=== PATIENT | male | born 1990 | race Hispanic/Latino ===

== ENCOUNTER 2019-02-10 12:12 | Inpatient (IN) | payer SELFPAY ==
[2019-02-10] MEDS ORDERED: NA CHLORIDE 0.9% 1,000 ML ONE ×3 (12:15→14:26)
[2019-02-10] MEDS ORDERED: DIAZEPAM 10 MG/2 ML INJ SYRINGE ONE (12:15)
[2019-02-10] MEDS ORDERED: Mastisol Adhesive Liq ONE ×3 (12:21→13:07)
[2019-02-10] MEDS ORDERED: KETAMINE HCL 500 MG/5 ML VIAL ONE (12:30)
[2019-02-10] MEDS ORDERED: PROPOFOL 1,000 MG/100 ML VIAL IV ONE (12:49)
[2019-02-10] MEDS ORDERED: RSI MEDICATION KIT IV ONE (12:49)
[2019-02-10] MEDS ORDERED: VECURONIUM 10 MG/VIAL IV ONE (12:49)
[2019-02-10] MEDS ORDERED: WATER FOR INJ,STERILE 20 ML ONE (12:50)
[2019-02-10 13:06] LABS: Absolute Lymphocytes (CBC) 1.6 K/uL (0.7-4.9); Basophils % 0.4 % (0-1.3); Hematocrit 45.1 % (39.6-49.0); Lymphocytes % 13.6 % (15.3-44.8); MPV 8.6 fL (7.6-11.3); RBC Red Blood Cell Count 5.03 M/uL (4.33-5.43)
[2019-02-10 13:10] LABS: Protime INR 0.97
[2019-02-10 13:39] LABS: ALT/SGPT 22 U/L (12-78); AST/SGOT 16 U/L (15-37); Albumin 4.2 g/dL (3.4-5.0); Alkaline Phosphatase 64 U/L (45-117); BUN Blood Urea Nitrogen 18 mg/dL (7-18); Bicarbonate 24 mmol/L (21-32); Bilirubin Direct < 0.1 mg/dL (0-0.2); Bilirubin Total 0.2 mg/dL (0.2-1.0); Creatine Phosphokinase 188 U/L (39-308); Glucose Level 90 mg/dL (74-106); Potassium 4.4 mmol/L (3.5-5.1); Protein, Total 7.5 g/dL (6.4-8.2); Sodium Level 152 mmol/L (136-145); Troponin I 0.03 ng/mL (0.0-0.045)
--- NOTE | 2019-02-10 13:50 | RAD REPORT ---
EXAM DESCRIPTION: CT - [id number] - 02/10/2019 1:41 pm CLINICAL HISTORY: Trauma, head and neck injury. AMS COMPARISON: No comparisons TECHNIQUE: Axial 5 mm thick images of the head were obtained. Axial 2 mm thick images of the cervical spine were obtained with sagittal and coronal reconstruction images generated and reviewed. All CT scans are performed using dose optimization technique as appropriate and may include automated exposure control or mA/KV adjustment according to patient size. FINDINGS: CT HEAD WITHOUT CONTRAST: No acute hemorrhage, hydrocephalus or extra-axial collection is identified.No areas of brain edema or midline shift. The paranasal sinuses and mastoids are clear.The calvarium is intact. CT CERVICAL SPINE WITHOUT CONTRAST: No fracture or subluxation.No prevertebral soft tissues swelling is identified. Enteric tube and ET tube are noted. IMPRESSION: No acute intracranial or cervical spine findings.
[2019-02-10 13:51] LABS: Barbiturates NEGATIVE (NEGATIVE); Benzodiazepines NEGATIVE (NEGATIVE); Cocaine NEGATIVE (NEGATIVE); METHAMPHETAM POSITIVE (NEGATIVE); Methadone NEGATIVE (NEGATIVE); Opiates NEGATIVE (NEGATIVE); Phencyclidine NEGATIVE (NEGATIVE); THC Cannibis POSITIVE (NEGATIVE)
[2019-02-10 14:12] LABS: Urine Blood 3+ (NEG); Urine Glucose NEGATIVE (NEG); Urine Protein 3+ (NEG); Urine Specific Gravity >1.030 (1.005-1.030)
--- NOTE | 2019-02-10 14:25 | RAD REPORT ---
EXAM DESCRIPTION: RAD - Chest Single View - 02/10/2019 2:19 pm CLINICAL HISTORY: Post ETT and NGT placement Chest pain. COMPARISON: CHEST SINGLE VIEW dated 03/05/2015 FINDINGS: Portable technique limits examination quality. The lungs are grossly clear. The heart is normal in size. No displaced fractures. Tip of the ET tube is above the amparo. Enteric tube coils in the stomach.
[2019-02-10] MEDS ORDERED: NACHLORIDE 0.45% 1,000 ML IV ONE (14:39)
--- NOTE | 2019-02-10 14:40 | EDPHYS ---
Physician Documentation [facility] Name: Carlos Manuel Nagel Age: 28 yrs Sex: Male : 1990 Arrival Date: 02/10/2019 Time: 12:26 Bed 4 Private MD: ED Physician Mauro Loo HPI: 02/10 12:45 This 28 yrs old Male presents to ER via EMS with complaints of Altered Mental cp Status, Drug Abuse. 12:45 The patient presents with agitation, confusion. Onset: The symptoms/episode cp began/occurred at an unknown time. Associated signs and symptoms: Pertinent positives: fever. Current symptoms: In the emergency department the patient's symptoms are unchanged from the initial presentation, despite EMS interventions. Unable to obtain HPI due to altered mental status. 12:45 EMS report patient was found in car unresponsive. cp Historical: - Allergies: 14:08 No Known Drug Allergies; hb - Immunization history:: Adult Immunizations unknown. - Social history:: Smoking status: unknown. - Ebola Screening: : Unable to complete screening because patient is unresponsive, patient is intubated, patient does not understand, patient is disoriented, . ROS: 12:50 Neuro: Positive for altered mental status. cp 12:50 Constitutional: Positive for fever. cp 12:50 Unable to obtain ROS due to altered mental status. Exam: 13:00 Constitutional: The patient appears alert, awake, non-toxic, well developed, well cp nourished, diaphoretic. 13:00 Head/Face: Normocephalic, atraumatic. cp 13:00 Eyes: Periorbital structures: appear normal, Pupils: dilated, bilaterally, Extraocular movements: intact throughout, Conjunctiva: normal, no exudate, no injection, Lids and lashes: appear normal, bilaterally. 13:00 ENT: External ear(s): are unremarkable, Ear canal(s): are normal, clear, TM's: dullness, bilaterally, Nose: is normal, Mouth: Lips: moist, Oral mucosa: moist, Posterior pharynx: Airway: no evidence of obstruction, patent. 13:00 Neck: ROM/movement: pain, is not appreciated, limited range of motion, is not appreciated, Meningeal signs: are not present, nuchal rigidity, is not appreciated. 13:00 Chest/axilla: Inspection: normal, Palpation: crepitus, is not appreciated. 13:00 Cardiovascular: Rate: tachycardic, Rhythm: regular, Edema: is not appreciated, JVD: is not appreciated. 13:00 Respiratory: the patient does not display signs of respiratory distress, Respirations: labored breathing, is not present, intercostal retractions, are absent, shallow respirations, are not present, Breath sounds: are clear throughout, no decreased breath sounds, no stridor, no wheezing. 13:00 Abdomen/GI: Inspection: abdomen appears normal, Palpation: abdomen is soft and non-tender, in all quadrants, rebound tenderness, is not appreciated. 13:00 Skin: no rash present. 13:00 Neuro: Orientation: Not oriented to person, place, situation, Mentation: unable to test, altered mental status, combative, Motor: moves all fours, strength is normal. 13:10 ECG was reviewed by the Attending Physician. cp Vital Signs: 12:20 BP 101 / 67; Pulse 180; Resp 34; Temp 102.9(A); Pulse Ox 89% on R/A; Weight 140 kg; hb 12:30 Pulse 177; Resp 30; Pulse Ox 99% ; sv 12:45 Pulse 174; Resp 30; Pulse Ox 100% on R/A; sv 13:18 BP 124 / 67; Pulse 137; Resp 18; Pulse Ox 98% on ETT vent; sv 13:30 BP 126 / 65; Pulse 129; Resp 20; Pulse Ox 100% on ETT vent; sv 13:45 BP 148 / 79; Pulse 130; Resp 18; Pulse Ox 99% on ETT vent; sv 14:00 BP 136 / 89; Pulse 117; Resp 16; Pulse Ox 99% on ETT vent; sv 14:15 BP 128 / 98; Pulse 121; Resp 16; Temp 99.5(C); Pulse Ox 98% on ETT vent; sv 14:27 BP 134 / 76; Pulse 122; Resp 16; Pulse Ox 100% on 40% FiO2 ETT vent; sv 14:45 BP 127 / 83; Pulse 117; Resp 17; Temp 99; Pulse Ox 100% on 40% FiO2 ETT vent; sv 15:00 BP 124 / 77; Pulse 117; Resp 14; Temp 98.8(C); Pulse Ox 100% on 40% FiO2 ETT vent; sv 16:15 BP 131 / 84; Pulse 111 MON; Resp 16; Temp 98.2(C); Pulse Ox 100% on 40% FiO2 ETT vent; sv 16:30 BP 135 / 84; Pulse 110; Resp 18; Pulse Ox 99% on 40% FiO2 ETT vent; sv 16:45 BP 126 / 83; Pulse 107; Resp 16; Pulse Ox 100% on 40% FiO2 ETT vent; sv 17:00 BP 124 / 88; Pulse 111; Resp 16; Pulse Ox 100% on 40% FiO2 ETT vent; sv 17:15 BP 125 / 80; Pulse 110; Resp 16; Temp 98.8(C); Pulse Ox 100% on 40% FiO2 ETT vent; sv 16:15 Sinus tachycardia sv Ventilator: 16:01 Fi02: 40%; Rate: 14min; T.V.: 500ml; Peep: 3cm; Mode: CMV; sv Procedures: 13:05 Moderate sedation: Pre-procedure assessment: the patient has been NPO an unknown amount cp of time prior to arrival, Airway assessment: able to maintain airway, can open mouth without difficulty, Monitoring during procedure: scale operator, continuous pulse oximetry, nurse at bedside at all times, Medications employed: Ketamine, 150 mg(s), Post-procedure assessment: the patient is moderately sedated, Respiratory status: even and unlabored. 13:20 Intubation: Ventilated with 100% NRB prior to procedure. O2 saturation prior to cp procedure was 100 %. Intubated orally using # 4 Ritu blade with 7.5 mm ETT. was successful on first attempt. Tube secured with ETT [place] at left side of mouth measured 23 cm at lip. Placement verified by CXR, CO2 detector with (+) color change, auscultating bilateral breath sounds, O2 saturation after procedure was 100 %. MDM: 12:46 Patient medically screened. cp 14:20 Data reviewed: vital signs, nurses notes, lab test result(s), EKG, radiologic studies, cp CT scan, plain films. 14:20 Test interpretation: by ED physician or midlevel provider: ECG, plain radiologic cp studies. 02/10 12:28 Order name: glucometer results - FOR PT WITH NO ID; Complete Time: 13:43 aa5 02/10 12:37 Order name: Acetaminophen cp 02/10 12:37 Order name: Basic Metabolic Panel cp 02/10 12:37 Order name: CBC with Diff cp 02/10 12:37 Order name: ETOH Level cp 02/10 12:37 Order name: Hepatic Function; Complete Time: 13:43 cp 02/10 12:37 Order name: PT-INR; Complete Time: 13:43 cp 02/10 12:37 Order name: Ptt, Activated; Complete Time: 13:43 cp 02/10 12:37 Order name: Salicylate; Complete Time: 13:43 cp 02/10 12:37 Order name: Urine Drug Screen; Complete Time: 14:07 cp 02/10 14:17 Interpretation: Normal except: METHAMPHETAMINE POSITIVE; THC POSITIVE. cp 02/10 12:37 Order name: Blood Culture Adult (2) cp 02/10 12:37 Order name: Lactate; Complete Time: 13:43 cp 02/10 13:43 Interpretation: Abnormal: LAC 6.4. cp 02/10 12:37 Order name: Procalcitonin; Complete Time: 14:07 cp 02/10 12:37 Order name: Troponin I; Complete Time: 13:43 cp 02/10 12:37 Order name: CT Head C Spine; Complete Time: 14:07 cp 02/10 14:07 Interpretation: Reviewed report. cp 02/10 12:37 Order name: CK; Complete Time: 13:43 cp 02/10 12:37 Order name: Ckmb; Complete Time: 13:43 cp 02/10 12:38 Order name: Acetaminophen Level; Complete Time: 13:43 EDMS 02/10 12:38 Order name: Basic Metabolic Panel; Complete Time: 13:43 EDMS 02/10 13:43 Interpretation: Normal except: NA 152; CL 118; CRE 1.63; GFR 51. cp 02/10 12:38 Order name: CBC with Automated Diff; Complete Time: 13:43 EDMS 02/10 13:44 Interpretation: Normal except: WBC 11.7; MCV 89.8; SHANNEN% 81.0; LYM% 13.6; NEUT A 9.5. cp 02/10 12:38 Order name: Alcohol Serum/Plasma; Complete Time: 13:43 EDMS 02/10 13:44 Interpretation: ETOH 4; Reviewed. cp 02/10 13:31 Order name: Urine Dipstick--Ancillary (enter results); Complete Time: 14:17 bd 02/10 14:17 Interpretation: Normal except: USPGR >1.030; UBLD 3+; UPROT 3+. cp 02/10 14:07 Order name: Chest Single View XRAY; Complete Time: 14:55 hb 02/10 12:37 Order name: EKG; Complete Time: 12:39 cp 02/10 12:37 Order name: EKG - Nurse/Tech; Complete Time: 14:08 cp 02/10 12:37 Order name: IV Saline Lock; Complete Time: 14:08 cp 02/10 12:37 Order name: Labs collected and sent; Complete Time: 14:08 cp 02/10 12:37 Order name: Urine Dipstick-Ancillary (obtain specimen); Complete Time: 14:08 cp 02/10 12:37 Order name: Ice pack; Complete Time: 15:29 cp 02/10 12:37 Order name: Seizure Precautions; Complete Time: 15:29 cp 02/10 12:37 Order name: Restrain Patient; Complete Time: 15:29 cp 02/10 12:37 Order name: Conde; Complete Time: 14:07 cp EC:10 Rate is 146 beats/min. Rhythm is regular. HI interval is normal. QRS interval is cp normal. QT interval is normal. Interpreted by me. Reviewed by me. Administered Medications: Discontinued: NS 0.9% 1000 ml IV at 125 ml/hr continuous 12:28 Drug: Valium 5 mg Route: IVP; Site: right antecubital; hb 12:50 Follow up: Response: No adverse reaction; No change in condition sv 12:31 Drug: NS 0.9% 1000 ml Route: IV; Rate: 1 bolus; Site: right antecubital; hb 13:00 Follow up: Response: No adverse reaction; IV Status: Completed infusion; IV Intake: sv 1000ml 12:33 Drug: NS 0.9% 1000 ml Route: IV; Rate: 1 bolus; Site: right forearm; sv 13:00 Follow up: Response: No adverse reaction; IV Status: Completed infusion; IV Intake: sv 1000ml 12:33 Drug: Ketamine 150 mg Route: IV; Rate: calculated rate; Site: right forearm; sv 15:32 Follow up: Response: No adverse reaction; No change in condition; IV Status: Completed sv infusion; IV Intake: 1.5ml 12:36 Drug: Ketamine 75 mg Route: IV; Rate: calculated rate; Site: right forearm; sv 12:39 Follow up: Response: No adverse reaction; No change in condition; IV Status: Completed sv infusion; IV Intake: 0.75ml 12:39 Drug: Ketamine 75 mg Route: IV; Rate: calculated rate; Site: right forearm; sv 12:45 Follow up: Response: No adverse reaction; IV Status: Completed infusion; IV Intake: sv 0.75ml 12:59 Drug: VecuroNIUM 10 mg Route: IVP; Site: right forearm; sv 14:00 Follow up: Response: No adverse reaction; Marked relief of symptoms sv 13:00 Drug: NS 0.9% 1000 ml Route: IV; Rate: 1 bolus; Site: left forearm; sv 13:45 Follow up: Response: No adverse reaction; IV Status: Completed infusion; IV Intake: sv 1000ml 13:10 Drug: Propofol 5 mcg/kg/min {Note: started at 15 mcg/kg/min.} Route: IV; Rate: sv calculated rate; Site: left forearm; 14:25 Follow up: Rate change 20 calculated rate sv 14:38 Follow up: Rate change 25 calculated rate sv 14:41 Follow up: Rate change 30 calculated rate sv 14:25 Drug: NS 0.9% 1000 ml Route: IV; Rate: 125 ml/hr; Site: left forearm; sv 14:42 Drug: NS 0.45 % 1000 ml Route: IV; Rate: 125 ml/hr; Site: left forearm; sv 14:50 Drug: VecuroNIUM 10 mg Route: IVP; Site: right forearm; sv 15:31 Follow up: Response: No adverse reaction; Marked relief of symptoms sv 15:24 CANCELLED (Physician Discretion): Ketamine 1 mg/kg IVP once sv 15:24 CANCELLED (Physician Discretion): Ketamine 1 mg/kg IVP once sv Disposition: 15:00 Critical Care:. cp 17:35 Chart complete. cp 02/11 07:07 Co-signature as Attending Physician, Mauro Loo MD I agree with the assessment and kdr plan of care. Disposition: 02/10/19 14:39 Hospitalization ordered by Michael Maddox for Inpatient Admission. Preliminary diagnosis are Altered mental status, unspecified, Adverse effect of amphetamines, Other stimulant abuse with intoxication delirium. - Bed requested for Intensive Care Unit. - Status is Inpatient Admission. sg - Condition is Stable. - Problem is new. - Symptoms have improved. UTI on Admission? No Critical care time excluding procedures: 02/10 15:00 Critical care time: Bedside Care: 30 minutes, Consultation: 10 minutes. Total time: 40 cp minutes Signatures: Dispatcher [employer] Audrey Love RN RN Jerome Hawkins RN RN sg Mauro Loo MD MD [facility] Oneal Segovia PA PA Leigh Ann Burrows RN RN Maco Kahn RN RN ja1 Corrections: (The following items were deleted from the chart) 15:24 12:37 Ketamine 1 mg/kg IVP once ordered. cp sv 15:24 12:37 Ketamine 1 mg/kg IVP once ordered. cp sv 16:30 14:39 Hospitalization Ordered by Michael Maddox DO for Inpatient Admission. Preliminary ja1 diagnosis is Altered mental status, unspecified; Adverse effect of amphetamines; Other stimulant abuse with intoxication delirium. Bed requested for Intensive Care Unit. Status is Inpatient Admission. Condition is Stable. Problem is new. Symptoms have improved. UTI on Admission? No. cp 17:28 16:30 02/10/2019 14:39 Hospitalization Ordered by Michael Maddox DO for Inpatient sg Admission. Preliminary diagnosis is Altered mental status, unspecified; Adverse effect of amphetamines; Other stimulant abuse with intoxication delirium. Bed requested for Intensive Care Unit. Status is Inpatient Admission. Condition is Stable. Problem is new. Symptoms have improved. UTI on Admission? No. ja1 18:18 13:00 Moderate sedation: Pre-procedure assessment: the patient has been NPO an unknown cp amount of time prior to arrival, Monitoring during procedure: scale operator, continuous pulse oximetry, nurse at bedside at all times, Medications employed: Ketamine, 140 mg(s), Post-procedure assessment: the patient is moderately sedated, Respiratory status: even and unlabored, cp
--- NOTE | 2019-02-10 14:40 | ER ---
Nurse's Notes [facility] Name: Carlos Manuel Nagel Age: 28 yrs Sex: Male : 1990 Arrival Date: 02/10/2019 Time: 12:26 Bed 4 Private MD: Diagnosis: Altered mental status, unspecified;Adverse effect of amphetamines;Other stimulant abuse with intoxication delirium Presentation: 02/10 12:20 Presenting complaint: EMS states: Found by police unresponsive slumped over steering hb wheel. BP 89/66, HR 150s, T102.9 axillary, diaphoretic, tremors, combative, 18g RIGHT AC, Ativan 2mg and 1L NS administered LAUNDRY TECHNICIAN, restraints in place. Transition of care: patient was not received from another setting of care. Onset of symptoms was February 10, 2019. Risk Assessment: Do you want to hurt yourself or someone else? Patient reports no desire to harm self or others. 12:20 Method Of Arrival: EMS: [facility] hb 12:20 Acuity: ROSY 1 hb 12:20 Note [employer] came with EMS as well. sv 12:30 Initial Sepsis Screen: Does the patient meet any 2 criteria? RR > 20 per min. Altered sv Mental Status. HR > 90 bpm. Yes Does the patient have a suspected source of infection? No. Patient's initial sepsis screen is negative. Care prior to arrival: Medication(s) given: Ativan IV initiated. 18 GA, in the right antecubital area, Restraints applied. Triage Assessment: 12:20 General: Appears distressed, unkempt, Behavior is combative, uncooperative. Pain: sv Unable to use pain scale. Patient is disoriented. Does not appear to understand pain scale. Patient appears agitated, confused. Neuro: Level of Consciousness is confused, Oriented to none Moves all extremities. Cardiovascular: Rhythm is sinus tachycardia. Respiratory: Airway is patent Respiratory effort is even, Respiratory pattern is symmetrical, tachypnea. Derm: Skin is intact, Skin is diaphoretic, Skin is flushed, Skin temperature is hot. Historical: - Allergies: 14:08 No Known Drug Allergies; hb - Immunization history:: Adult Immunizations unknown. - Social history:: Smoking status: unknown. - Ebola Screening: : Unable to complete screening because patient is unresponsive, patient is intubated, patient does not understand, patient is disoriented, . Screenin:14 Abuse screen: unknown. Nutritional screening: unknown. Tuberculosis screening: unknown. sv Fall Risk No fall in past 12 months (0 pts). No secondary diagnosis (0 pts). IV access (20 points). Ambulatory Aid- None/Bed Rest/Nurse Assist (0 pts). Gait- Normal/Bed Rest/Wheelchair (0 pts) Mental Status- Overestimates/Forgets Limitations (15 pts.). Total Taylor Fall Scale indicates Low Risk Score (25-44 pts). Fall prevention measures have been instituted. Side Rails Up X 2 Placed close to Nursing Station 1:1 attendant Assigned to Pt. Frequent Obs/Assesments occuring As available Patient and Family Educated on Fall Prevention Program and strategies. Assessment: 12:35 Reassessment: Ice packs placed on pt. sv 12:45 General: Appears uncomfortable, Behavior is agitated, uncooperative. Neuro: Level of sv Consciousness is confused, Oriented to none. Respiratory: Respiratory effort is even, Respiratory pattern is symmetrical, tachypnea. Derm: Skin is diaphoretic, Skin is flushed, Skin temperature is hot. 13:33 Reassessment: Pt to CT with Audrey ADAMS and RT. hb 14:38 Neuro: Level of Consciousness is intubated and sedated but pt is starting to cough over sv the vent and attempting to move arms and legs. Pt remains restrained.. 14:56 Neuro: Level of Consciousness is confused, intubated, sedated and still attempting to sv move arms and legs. Informed Dr Loo, medication order received.. Oriented to none. 15:23 Reassessment: Spoke with poison control as Dr Maddox was requesting. Informed of the sv reason for visit and the care we have done, and lab results. They stated to continue cardiac monitoring and continue symptomatic supportive care. 16:45 Reassessment: Patient appears in no apparent distress at this time. No changes from sv previously documented assessment. Pt remains intubated and sedated. Vital Signs: 12:20 BP 101 / 67; Pulse 180; Resp 34; Temp 102.9(A); Pulse Ox 89% on R/A; Weight 140 kg; hb 12:30 Pulse 177; Resp 30; Pulse Ox 99% ; sv 12:45 Pulse 174; Resp 30; Pulse Ox 100% on R/A; sv 13:18 BP 124 / 67; Pulse 137; Resp 18; Pulse Ox 98% on ETT vent; sv 13:30 BP 126 / 65; Pulse 129; Resp 20; Pulse Ox 100% on ETT vent; sv 13:45 BP 148 / 79; Pulse 130; Resp 18; Pulse Ox 99% on ETT vent; sv 14:00 BP 136 / 89; Pulse 117; Resp 16; Pulse Ox 99% on ETT vent; sv 14:15 BP 128 / 98; Pulse 121; Resp 16; Temp 99.5(C); Pulse Ox 98% on ETT vent; sv 14:27 BP 134 / 76; Pulse 122; Resp 16; Pulse Ox 100% on 40% FiO2 ETT vent; sv 14:45 BP 127 / 83; Pulse 117; Resp 17; Temp 99; Pulse Ox 100% on 40% FiO2 ETT vent; sv 15:00 BP 124 / 77; Pulse 117; Resp 14; Temp 98.8(C); Pulse Ox 100% on 40% FiO2 ETT vent; sv 16:15 BP 131 / 84; Pulse 111 MON; Resp 16; Temp 98.2(C); Pulse Ox 100% on 40% FiO2 ETT vent; sv 16:30 BP 135 / 84; Pulse 110; Resp 18; Pulse Ox 99% on 40% FiO2 ETT vent; sv 16:45 BP 126 / 83; Pulse 107; Resp 16; Pulse Ox 100% on 40% FiO2 ETT vent; sv 17:00 BP 124 / 88; Pulse 111; Resp 16; Pulse Ox 100% on 40% FiO2 ETT vent; sv 17:15 BP 125 / 80; Pulse 110; Resp 16; Temp 98.8(C); Pulse Ox 100% on 40% FiO2 ETT vent; sv 16:15 Sinus tachycardia sv ED Course: 12:20 Maintain EMS IV. Dressing intact. Good blood return noted. Site clean \T\ dry. Gauge \T\ sv site: 18G R FA. 12:25 Placed in gown. Bed in low position. Side rails up X2. Seizure precautions initiated. sv regional sales director on. Pulse ox on. NIBP on. 12:26 Patient arrived in ED. bd 12:30 Initial lab(s) drawn, by ED staff, sent to lab. Inserted saline lock: 18 gauge in left sv forearm, using aseptic technique. ,using aseptic technique. done by Jerome ADAMS Blood collected. 12:33 Oneal Segovia PA is PHCP. cp 12:33 Mauro Loo MD is Attending Physician. cp 12:35 Arm band placed on. sv 12:35 Patient has correct armband on for positive identification. sv 13:00 Assisted provider with intubation using 7.5 mm ETT via oral route. ET tube secured at sv 23cm at the teeth. Set up intubation tray. Intubated by Oneal HUGGINS Placement verified by CO2 detector w/ + color change, auscultating bilateral breath sounds, Patient tolerated well. 13:06 Radiology exam delayed due to intubating at this time, will call when ready. [id number] 13:14 NGT: inserted 16 Fr. via left nare. verified return of gastric contents, to hb intermittent suction. Returned gastric contents. Amount of gastric contents removed by suction 450ml. Patient tolerated well. 13:21 Conde cath inserted, using sterile technique, 18 Fr., by il, balloon inflated, to gravity drainage, urine specimen collected. returned clear yellow urine. Patient tolerated well. 13:33 Triage completed. hb 13:41 CT Head C Spine In Process Unspecified. EDMS 13:42 Notified Nurse Practitioner and/or Physician Wheel Truing Machine Tender of a critical lab result(s), hb LACTATE 6.4. 14:19 Chest Single View XRAY In Process Unspecified. EDMS 14:33 Audrey Samayoa RN is Primary Nurse. sv 14:36 Michael Maddox DO is Hospitalizing Provider. cp 15:29 ETOH Level Sent. sv 15:29 CBC with Diff Sent. sv 15:29 Basic Metabolic Panel Sent. sv 15:29 Acetaminophen Sent. sv 16:50 Patient admitted, IV remains in place. intact. sv 19:32 Primary Nurse role handed off by Audrey Samayoa RN sv Restraints: 12:20 Violent/Self Destructive Restraint: Order: obtained. Initiated February 10, 2019 at 12:20 sv Staff present during the Initiation of Restraint: Oneal HUGGINS, Dr Loo, Jerome RN, Leigh Ann RN, [facility], [facility], EMS personel.. Observed actions/behavior: destructive, violent, severely aggressive, harming self/others, confusion/disorientation, difficulty remembering or follow instructions, impaired decision making, repeated attempts to get up from bed/chair without assistance. unable to follow instructions, rptd attempts to remove/tamper lines/tubes/IV/med devices \T\ wnd dressing, Less restrictive alternatives attempted: decreased environmental stimuli, reoriented to location, medicated for pain/anxiety, eliminated unnecessary lines/tubes, Alternative interventions: Ineffective. Clinical justification for use: Violent/self destructing behavior impacts therapeutic environment. Poses a serious danger to physical safety of self \T\ others. Monitoring: Mental status: agitated/restless, confused. Cognition: poor judgement, poor safety awareness, Impulsive, poor attention/concentration, unable to follow commands, short term memory loss, Circulation: Within defined parameters (based on Cardiovascular assessment). Skin integrity: Within defined parameters (based on Integumentary assessment) No injuries due to Restraints noted. Restraint status: Side rails up x 4 Started. Soft wrist restraint (Right) Started. Soft wrist restraint (Left) Started. Soft ankle restraint (Right) Started. Soft ankle restraint (Left) Started. Readiness for Discontinue: Criteria not met. Patient still violent/self destructive and Alternative interventions still ineffective. Restraint continued. 12:35 Violent/Self Destructive Restraint: Observed actions/behavior: destructive, violent, sv severely aggressive, harming self/others, confusion/disorientation, difficulty remembering or follow instructions, impaired decision making, repeated attempts to get up from bed/chair without assistance. unable to follow instructions, rptd attempts to remove/tamper lines/tubes/IV/med devices \T\ wnd dressing, Less restrictive alternatives attempted: decreased environmental stimuli, 1:1 patient care, placed near Nurse station, reoriented to location, medications evaluated, medicated for pain/anxiety, covered lines/tubes, eliminated unnecessary lines/tubes, verbal de-escalation performed, Alternative interventions: Ineffective. Clinical justification for use: Violent/self destructing behavior impacts therapeutic environment. Poses a serious danger to physical safety of self \T\ others. Monitoring: Mental status: agitated/restless, confused. Cognition: poor judgement, poor safety awareness, Impulsive, poor attention/concentration, unable to follow commands, short term memory loss, Circulation: Within defined parameters (based on Cardiovascular assessment). Skin integrity: Within defined parameters (based on Integumentary assessment) No injuries due to Restraints noted. Restraint status: Side rails up x 4 Continued. Soft wrist restraint (Right) Continued. Soft wrist restraint (Left) Continued. Soft ankle restraint (Right) Continued. Soft ankle restraint (Left) Continued. Readiness for Discontinue: Criteria not met. Patient still violent/self destructive and Alternative interventions still ineffective. Restraint continued. 12:50 Violent/Self Destructive Restraint: Observed actions/behavior: destructive, violent, sv severely aggressive, harming self/others, confusion/disorientation, difficulty remembering or follow instructions, impaired decision making, repeated attempts to get up from bed/chair without assistance. unable to follow instructions, rptd attempts to remove/tamper lines/tubes/IV/med devices \T\ wnd dressing, Less restrictive alternatives attempted: decreased environmental stimuli, 1:1 patient care, placed near Nurse station, reoriented to location, medications evaluated, medicated for pain/anxiety, covered lines/tubes, eliminated unnecessary lines/tubes, verbal de-escalation performed, Alternative interventions: Ineffective. Clinical justification for use: Violent/self destructing behavior impacts therapeutic environment. Poses a serious danger to physical safety of self \T\ others. Monitoring: Mental status: agitated/restless, confused. Cognition: poor judgement, poor safety awareness, Impulsive, poor attention/concentration, unable to follow commands, short term memory loss, Circulation: Within defined parameters (based on Cardiovascular assessment). Skin integrity: Within defined parameters (based on Integumentary assessment) No injuries due to Restraints noted. Restraint status: Side rails up x 4 Continued. Soft wrist restraint (Right) Continued. Soft wrist restraint (Left) Continued. Soft ankle restraint (Right) Continued. Soft ankle restraint (Left) Continued. Readiness for Discontinue: Criteria not met. Patient still violent/self destructive and Alternative interventions still ineffective. Restraint continued. Face to Face Evaluatn: Response of Patient to Restraint: Pt continues to raise arms and legs, not able to orient the pt. Pt severely diaphoretic, HR 170-180s Continue Restraint. Notified of Evaluation result: Mauro Loo MD. 13:05 Non-Violent Restraint: Order obtained. Initiated on February 10, 2019 at 13:05 Unable to sv provide Restraint education. Pt intubated and sedated at this time.. Actions/Behavior observed: Confused/disoriented, has difficulty remembering/follow instructions, has impaired decision making, has decreased level of consciousness, unable to follow instructions, repeated attempts to remove/tamper lines/tubes/IV med devices \T\ wound dressing, repeated attempts to remove artifical airway/mechanical resp support, Less restrictive alternatives attempted: decrease environmental stimuli, 1:1 patient care, placed near Nurse station, reoriented to location, medications evaluated, medicated for pain/anxiety, lines/tubes covered, eliminated unnecessary lines/tubes, Alternative interventions: Ineffective. Clinical justification for use: airway protection, line protection, patient safety, Mental status: agitated/restless, confused, Cognition: poor judgement, poor safety awareness, impulsive, poor attention/concentration, unable to follow commands, short term memory loss, Circulation: Within defined parameters (based on Cardiovascular assessment) Skin integrity: Within defined parameters (based on Integumentary assessment) Signs of injury related to restraint: No injuries noted. Range of Motion (ROM): performed. Restraint status: Side rails up x 4 Continued. Soft wrist restraint (Right) Continued. Soft wrist restraint (Left) Continued. Soft ankle restraint (Right) Discontinued. Soft ankle restraint (Left) Discontinued. Criteria to discontinue Restraint not met. Restraint continued. 15:05 Non-Violent Restraint: Unable to provide Restraint education. Pt intubated and sv sedated.. Actions/Behavior observed: Confused/disoriented, has difficulty remembering/follow instructions, has impaired decision making, has decreased level of consciousness, unable to follow instructions, repeated attempts to remove/tamper lines/tubes/IV med devices \T\ wound dressing, repeated attempts to remove artifical airway/mechanical resp support, Less restrictive alternatives attempted: decrease environmental stimuli, 1:1 patient care, placed near Nurse station, reoriented to location, medications evaluated, medicated for pain/anxiety, lines/tubes covered, eliminated unnecessary lines/tubes, Alternative interventions: Ineffective. Clinical justification for use: airway protection, line protection, patient safety, Mental status: patient asleep, Cognition: poor judgement, poor safety awareness, impulsive, poor attention/concentration, unable to follow commands, short term memory loss, Circulation: Within defined parameters (based on Cardiovascular assessment) Skin integrity: Within defined parameters (based on Integumentary assessment) Signs of injury related to restraint: No injuries noted. Range of Motion (ROM): patient asleep. Restraint status: Side rails up x 4 Continued. Soft wrist restraint (Right) Continued. Soft wrist restraint (Left) Continued. Criteria to discontinue Restraint not met. Restraint continued. Administered Medications: Discontinued: NS 0.9% 1000 ml IV at 125 ml/hr continuous 12:28 Drug: Valium 5 mg Route: IVP; Site: right antecubital; hb 12:50 Follow up: Response: No adverse reaction; No change in condition sv 12:31 Drug: NS 0.9% 1000 ml Route: IV; Rate: 1 bolus; Site: right antecubital; hb 13:00 Follow up: Response: No adverse reaction; IV Status: Completed infusion; IV Intake: sv 1000ml 12:33 Drug: NS 0.9% 1000 ml Route: IV; Rate: 1 bolus; Site: right forearm; sv 13:00 Follow up: Response: No adverse reaction; IV Status: Completed infusion; IV Intake: sv 1000ml 12:33 Drug: Ketamine 150 mg Route: IV; Rate: calculated rate; Site: right forearm; sv 15:32 Follow up: Response: No adverse reaction; No change in condition; IV Status: Completed sv infusion; IV Intake: 1.5ml 12:36 Drug: Ketamine 75 mg Route: IV; Rate: calculated rate; Site: right forearm; sv 12:39 Follow up: Response: No adverse reaction; No change in condition; IV Status: Completed sv infusion; IV Intake: 0.75ml 12:39 Drug: Ketamine 75 mg Route: IV; Rate: calculated rate; Site: right forearm; sv 12:45 Follow up: Response: No adverse reaction; IV Status: Completed infusion; IV Intake: sv 0.75ml 12:59 Drug: VecuroNIUM 10 mg Route: IVP; Site: right forearm; sv 14:00 Follow up: Response: No adverse reaction; Marked relief of symptoms sv 13:00 Drug: NS 0.9% 1000 ml Route: IV; Rate: 1 bolus; Site: left forearm; sv 13:45 Follow up: Response: No adverse reaction; IV Status: Completed infusion; IV Intake: sv 1000ml 13:10 Drug: Propofol 5 mcg/kg/min {Note: started at 15 mcg/kg/min.} Route: IV; Rate: sv calculated rate; Site: left forearm; 14:25 Follow up: Rate change 20 calculated rate sv 14:38 Follow up: Rate change 25 calculated rate sv 14:41 Follow up: Rate change 30 calculated rate sv 14:25 Drug: NS 0.9% 1000 ml Route: IV; Rate: 125 ml/hr; Site: left forearm; sv 14:42 Drug: NS 0.45 % 1000 ml Route: IV; Rate: 125 ml/hr; Site: left forearm; sv 14:50 Drug: VecuroNIUM 10 mg Route: IVP; Site: right forearm; sv 15:31 Follow up: Response: No adverse reaction; Marked relief of symptoms sv 15:24 CANCELLED (Physician Discretion): Ketamine 1 mg/kg IVP once sv 15:24 CANCELLED (Physician Discretion): Ketamine 1 mg/kg IVP once sv Intake: 12:39 IV: 1ml; Total: 1ml. sv 12:45 IV: 1ml; Total: 2ml. sv 13:00 IV: 1000ml; Total: 1002ml. sv 13:00 IV: 1000ml; Total: 2002ml. sv 13:45 IV: 1000ml; Total: 3002ml. sv 15:32 IV: 2ml; Total: 3003ml. sv Ventilator: 16:01 Fi02: 40%; Rate: 14min; T.V.: 500ml; Peep: 3cm; Mode: CMV; sv Outcome: 14:39 Decision to Hospitalize by Provider. cp 16:49 Admitted to ICU accompanied by nurse, accompanied by tech, via stretcher, room 3, with sv oxygen, on monitor, with chart, Report called to Kellie ADAMS 16:49 Condition: stable 16:49 Instructed on the need for admit. 16:50 Patient left the ED. sv Signatures: Dispatcher [employer] EDMS Mickie Nuñez Stephanie, RN RN Jerome Hawkins RN RN sg Page, Corey, PA PA cp Baxter, Heather, RN RN hb Garcia, Jessica [id number] Corrections: (The following items were deleted from the chart) 15:32 12:36 Response: No adverse reaction; No change in condition sv sv 15:32 15:32 Response: No adverse reaction; No change in condition; IV Intake: 1.5ml sv sv 16:01 14:27 BP 134 / 76; Pulse 122bpm; Resp 16bpm; Pulse Ox 100% ET / Ventilator; sv sv 16:01 14:45 BP 127 / 83; Pulse 117bpm; Resp 17bpm; Pulse Ox 100% ET / Ventilator; Temp 99F; svsv 16:01 15:00 BP 124 / 77; Pulse 117bpm; Resp 14bpm; Pulse Ox 100% ET / Ventilator; Temp 98.8F sv Catheter; sv 19:32 17:28 Patient left the ED. sg sv
[2019-02-10] MEDS ORDERED: WATER FOR INJ,STERILE 10 ML ONE (14:44)
--- NOTE | 2019-02-10 15:00 | P.HP ---
Certification for Inpatient Patient admitted to: Inpatient With expected LOS: >2 Midnights Patient will require the following post-hospital care: None Practitioner: I am a practitioner with admitting privileges, knowledge of patient current condition, hospital course, and medical plan of care. Services: Services provided to patient in accordance with Admission requirements found in Title 42 Section 412.3 of the Code of Federal Regulations Patient History Date of Service: 02/10/19 Primary Care Provider: Unknown Reason for admission: Altered mental status History of Present Illness: 28-year-old male presented to the emergency room after he was brought in by EMS and police. All information came from ER physician and EMS. Apparently police arrived to patient's car after they were called to investigate a person slumped over in a car. When EMS arrived patient was combative and agitated. Patient required Ativan. Patient was febrile with temperature of 102. Upon arrival to the ER patient continued to be combative and agitated. Valium was given. Ketamine also was required. Patient was intubated for airway protection and to the severe agitation. In the ER, patient was initially tachycardic with a rate between 150-180. CT head unremarkable. Chest x-ray unremarkable. Urine drug screen was positive for amphetamines and THC. Tylenol level within normal range. Alcohol level was elevated at 4.0. White count 11.7, hemoglobin 14. Platelet count of 292. Sodium 152. Potassium 4.4, BUN of 18, creatinine 1.63 with a GFR 51. Glucose 90. Pro calcitonin unremarkable. Lactic acid was elevated at 6.4. Patient was given IV fluids in the emergency room. Patient remains stable on ventilator. I was asked to admit the patient for further evaluation and treatment. When I saw the patient, patient was intubated and sedated. Dilated pupils noted. Family not present. Allergies No Known Drug Allergies Allergy (Unverified 03/16/15 16:42) Unknown No Known Allergies Allergy (Uncoded 10/31/15 03:35) Unknown Home medications list reviewed: No - Past Medical/Surgical History Past Medical History: Unable to obtain Past Surgical History: Unable to obtain Psychosocial/ Personal History: Unable to be obtained. Unknown home situation. None known family situation. - Family History Family History: Reviewed- Non-Contributory - Social History Smoking Status: Current every day smoker (Drug screen positive for THC) Smoking therapy provided: No Patient receptive to therapy: No (Patient intubated) Review of Systems is unable to be obtained Physical Examination - Physical Exam General: Other (Patient sedated and intubated. Currently stable this time.) HEENT: Other (Pupils dilated.) Neck: Supple Respiratory: Clear to auscultation bilaterally, Normal air movement Cardiovascular: Abnormal pulses (Sinus tachycardia) Gastrointestinal: Normal bowel sounds, Soft and benign, Non-distended Musculoskeletal: No swelling, No contractures Integumentary: No significant lesion, No tenderness/swelling, No erythema Neurological: Other (Patient intubated) - Studies Laboratory Data (last 24 hrs) 02/10/19 12:48: PT 11.5, INR 0.97, APTT 20.3 L 02/10/19 12:48: WBC 11.7 H, Hgb 14.8, Hct 45.1, Plt Count 292 02/10/19 12:48: Sodium 152 H, Potassium 4.4, BUN 18, Creatinine 1.63 H, Glucose 90, Total Bilirubin 0.2, AST 16, ALT 22, Alkaline Phosphatase 64, Troponin I 0.03 Assessment and Plan - Plan Impression: Altered mental status suspect metabolic encephalopathy related to drug overdose complicated with positive drug screen-amphetamines/THC and alcohol Acute renal injury with hypernatremia Plan: Altered mental status suspect metabolic encephalopathy related to drug overdose complicated with positive drug screen-amphetamines/THC and alcohol: Patient will be admitted to ICU. Continue vent protocol. Will consult pulmonology for management of vent/ICU. Will consult Poison Control for recommendations due to suspected drug overdose with amphetamines/THC and possibly other drugs. Patient has been given 3 L of IV fluids. Will continue with maintenance IV fluids. Recheck BMP later today. Continue to monitor electrolytes closely. Will provide DVT prophylaxis-Lovenox. Will obtain blood, sputum cultures to rule out infection. Patient may require soft restraints. Order for Dobhoff for possible initiation of nutrition. Fever likely related to dehydration. Patient may require cooling blanket. Will need to obtain more information from police. Hopefully will get information from family members. Will need to investigate for possible suicidal ideation once the patient is extubated. Continue with serial examinations. Acute renal injury with hypernatremia: Patient has received 3 L of IV fluids. Continue with IV fluid hydration. Will monitor electrolytes closely. Protocol is in place for replacement. Discharge Plan: Home Plan to discharge in: Greater than 2 days - Advance Directives Does patient have a Living Will: No Does patient have a Durable POA for Healthcare: No - Code Status/Comfort Care Code Status Assessed: No (Not able to be obtained) Time Spent Managing Pts Care (In Minutes): 60
--- NOTE | 2019-02-10 16:06 | EKG ---
Test Date: 2019-02-10 Test Time: 13:05:46 Board Writer: JULIANA MEASUREMENT RESULTS: Intervals: Rate: 146 W[place]: 142 QRSD: 70 QT: 260 QTc: 405 [place]: P: 68 W[place]: 142 QRS: 71 T: 58 INTERPRETIVE STATEMENTS: Sinus tachycardia Nonspecific T wave abnormality Abnormal ECG No previous ECG available for comparison Electronically Signed On 02-10-19 16:06:03 CDT by Deepak Kong
[2019-02-10] MEDS ORDERED: ACETAMINOPHEN 500 MG TAB PO PRN (16:49)
[2019-02-10] MEDS ORDERED: ONDANSETRON 4 MG/2 ML VIAL IV PRN (16:49)
[2019-02-10] MEDS ORDERED: LORazepam 2 MG/ML VIAL IV PRN (16:49)
[2019-02-10] MEDS ORDERED: ACETAMINOPHEN 650MG/RECT SUPP PR PRN (16:49)
[2019-02-10] MEDS ORDERED: IPRATROPIUM BROM 0.5MG/2.5ML NEB PRN (16:49)
[2019-02-10] MEDS ORDERED: NA CHLORIDE 0.9% 250 ML IV PRN (17:39)
[2019-02-10] MEDS ORDERED: MIDAZOLAM HCL 2 MG/2 ML INJ IV PRN (17:39)
[2019-02-10] MEDS ORDERED: HALOPERIDOL LACT 5 MG/ML INJ IV PRN (17:39)
[2019-02-10] MEDS: PROPOFOL 1,000 MG/100 ML VIAL IV PRN (19:19)
[2019-02-10] MEDS: D5 0.45 NS 1,000 ML IV SCH (19:20)
[2019-02-10] MEDS: ENOXAPARIN 40 MG/0.4 ML SQ SCH (19:20)
[2019-02-10 19:43] LABS: Potassium 3.8 mmol/L (3.5-5.1)
[2019-02-10] MEDS: LORazepam 2 MG/ML VIAL IV PRN (20:20)
[2019-02-10] MEDS: FAMOTIDINE 20 MG/2 ML VIAL IV SCH (21:10)
[2019-02-11] MEDS: D5 0.45 NS 1,000 ML IV SCH (03:19)
[2019-02-11] MEDS: PROPOFOL 1,000 MG/100 ML VIAL IV PRN ×3 (03:23→22:37)
[2019-02-11] MEDS: FENTANYL CITR 100 MCG/2 ML IV PRN ×2 (03:36→22:04)
[2019-02-11 05:45] LABS: ALT/SGPT 55 U/L (12-78); AST/SGOT 155 U/L (15-37); Albumin 3.5 g/dL (3.4-5.0); Alkaline Phosphatase 51 U/L (45-117); BUN Blood Urea Nitrogen 16 mg/dL (7-18); Bicarbonate 28 mmol/L (21-32); Bilirubin Total 0.7 mg/dL (0.2-1.0); Glucose Level 116 mg/dL (74-106); Magnesium 2.2 mg/dL (1.8-2.4); Potassium 3.5 mmol/L (3.5-5.1); Protein, Total 6.4 g/dL (6.4-8.2); Sodium Level 147 mmol/L (136-145)
[2019-02-11 05:57] LABS: Absolute Lymphocytes (CBC) 2.8 K/uL (0.7-4.9); Basophils % 0.2 % (0-1.3); Hematocrit 39.9 % (39.6-49.0); Lymphocytes % 25.7 % (15.3-44.8); MPV 8.6 fL (7.6-11.3); RBC Red Blood Cell Count 4.44 M/uL (4.33-5.43)
[2019-02-11] MEDS ORDERED: KCL 20 MEQ/100 mL IVPB 20 MEQ/100 ML BAG IV SCH (07:00)
--- NOTE | 2019-02-11 07:23 | RAD REPORT ---
EXAM DESCRIPTION: RAD - Chest Single View - 02/11/2019 6:34 am CLINICAL HISTORY: Respiratory distress, intubation COMPARISON: February 10 TECHNIQUE: AP portable chest image was obtained 0631 hours . FINDINGS: Endotracheal to unchanged in position with tip 1-2 cm above the aortic arch level. NG tube remains in good position. Trachea is midline. No new or progressive lung parenchymal process. Heart and vasculature are normal. No measurable pleural effusion and no pneumothorax. No acute bony abnormality seen. No acute aortic findings suspected. IMPRESSION: Lungs remain clear. ET tube and NG tube remain in good position.
[2019-02-11] MEDS ORDERED: LORazepam 2 MG/ML VIAL IV ONE (08:08)
[2019-02-11] MEDS ORDERED: HALOPERIDOL LACT 5 MG/ML INJ IV PRN (08:09)
--- NOTE | 2019-02-11 08:32 | P.CNS ---
Date of Consult: 02/11/19 Primary Care Provider: Unknown Chief Complaint: Respiratory failure patient on a ventilator History of Present Illness: Patient is 28 years of age as found unresponsive intubated febrile combative agitated currently on a propofol drip amphetamine drug screen positive currently hemodynamically stable unable to obtain any medical information Allergies No Known Drug Allergies Allergy (Unverified 03/16/15 16:42) Unknown No Known Allergies Allergy (Uncoded 10/31/15 03:35) Unknown Home Medications: Unobtainable 02/10/19 - Past Medical/Surgical History Psychosocial/ Personal History: Unable to be obtained. Unknown home situation. None known family situation. - Social History Smoking Status: Unknown if ever smoked CD- Drugs: Yes Review of Systems is unable to be obtained Physical Examination Temp Pulse Resp BP Pulse Ox 98.8 F 107 H 14 143/100 H 100 02/11/19 08:00 02/11/19 08:00 02/11/19 08:00 02/11/19 08:00 02/11/19 08:00 General: Unresponsive Neck: Supple Respiratory: Clear to auscultation bilaterally Cardiovascular: No edema, Regular rate/rhythm, Normal S1 S2 Laboratory Data (last 24 hrs) 02/10/19 12:48: PT 11.5, INR 0.97, APTT 20.3 L 02/10/19 12:48: WBC 11.7 H, Hgb 14.8, Hct 45.1, Plt Count 292 02/10/19 12:48: Sodium 152 H, Potassium 4.4, BUN 18, Creatinine 1.63 H, Glucose 90, Total Bilirubin 0.2, AST 16, ALT 22, Alkaline Phosphatase 64, Troponin I 0.03 - Problems (1) Respiratory failure Current Visit: Yes Status: Acute Plan: Patient is 28 years of age admitted with amphetamine positive urinalysis unresponsiveness agitated patient is hypernatremic renal failure presumed dehydration he still hypernatremic that needs to be corrected wean off propofol use Ativan Haldol chest x-ray clear minimal oxygen requirement Qualifiers: Chronicity: acute (2) Hypernatremia Current Visit: Yes Status: Acute Plan: Most likely secondary to her dehydration change to D5 water
[2019-02-11] MEDS: D5W 1,000 ML IV SCH ×2 (08:55→20:29)
[2019-02-11] MEDS: ENOXAPARIN 40 MG/0.4 ML SQ SCH (08:55)
[2019-02-11] MEDS: FAMOTIDINE 20 MG/2 ML VIAL IV SCH ×2 (08:55→20:29)
--- NOTE | 2019-02-11 10:34 | P.PN ---
Subjective Date of Service: 02/11/19 Primary Care Provider: Unknown Chief Complaint: Respiratory failure patient on a ventilator Subjective: Other (Patient remains intubated but alert.) Physical Examination - Vital Signs Temperature: 98.9 F Blood Pressure: 138/97 Pulse: 111 Respirations: 14 Pulse Ox (%): 100 - Physical Exam General: Alert, Cooperative, Other (Patient intubated) HEENT: Atraumatic Neck: Supple Respiratory: Clear to auscultation bilaterally, Normal air movement Cardiovascular: Abnormal pulses (Mild sinus tachycardia) Gastrointestinal: Normal bowel sounds, Soft and benign, Non-distended, No tenderness, No masses, No rebound, No guarding Musculoskeletal: No erythema, No tenderness, No warmth Integumentary: No tenderness/swelling, No erythema, No warmth, No cyanosis Neurological: Normal strength at 5/5 x4 extr - Studies Laboratory Data (last 24 hrs) 02/10/19 12:48: PT 11.5, INR 0.97, APTT 20.3 L 02/10/19 12:48: WBC 11.7 H, Hgb 14.8, Hct 45.1, Plt Count 292 02/10/19 12:48: Sodium 152 H, Potassium 4.4, BUN 18, Creatinine 1.63 H, Glucose 90, Total Bilirubin 0.2, AST 16, ALT 22, Alkaline Phosphatase 64, Troponin I 0.03 Medications List Reviewed: Yes Assessment & Plan Discharge Plan: Home Plan to discharge in: 48 Hours Physician Review Additional Text: Impression: Altered mental status suspect metabolic encephalopathy related to drug overdose complicated with positive drug screen-amphetamines/THC and alcohol Acute renal injury with hypernatremia Acute respiratory failure requiring intubation for airway protection Plan: Altered mental status suspect metabolic encephalopathy related to drug overdose complicated with positive drug screen-amphetamines/THC and alcohol: Continue with Pulmonary recommendations. Patient to be weaned off ventilator today. IV fluids adjusted. No information has been found concerning his family or social saturation. Await until he is able to get off the vent for more details. Continue current plan of care. Will need to investigate for possible suicidal ideation once the patient is extubated. Continue with serial examinations. Acute renal injury with hypernatremia: Improvement noted. IV fluids adjusted. Acute respiratory failure requiring intubation for airway protection: Pulmonology to wean off ventilator. Slight improvement noted Time Spent Managing Pts Care (In Minutes): 55
[2019-02-11] MEDS: LORazepam 2 MG/ML VIAL IV PRN ×3 (14:21→23:06)
[2019-02-12] MEDS: LORazepam 2 MG/ML VIAL IV PRN ×3 (01:07→20:34)
[2019-02-12] MEDS: D5W 1,000 ML IV SCH (04:59)
[2019-02-12] MEDS: PROPOFOL 1,000 MG/100 ML VIAL IV PRN ×3 (04:59→20:33)
[2019-02-12 05:45] LABS: Basophils % 0.2 % (0-1.3); Hematocrit 46.1 % (39.6-49.0); Lymphocytes % 6.1 % (15.3-44.8); MPV 8.2 fL (7.6-11.3); RBC Red Blood Cell Count 5.07 M/uL (4.33-5.43)
[2019-02-12 05:57] LABS: Albumin 3.8 g/dL (3.4-5.0); Bilirubin Total 0.9 mg/dL (0.2-1.0); Magnesium 1.7 mg/dL (1.8-2.4); Phosphorus 3.6 mg/dL (2.5-4.9); Potassium 3.7 mmol/L (3.5-5.1); Protein, Total 7.1 g/dL (6.4-8.2)
[2019-02-12 06:16] LABS: Blood Gas Oxyhemoglobin 95.2 % (94-97); Blood O2 Saturation 96.8 % (92-98.5)
[2019-02-12] MEDS ORDERED: MAGNESIUM SULFATE 1 gm IVPB 1 GM/100 ML BAG IV ONE (06:20)
[2019-02-12] MEDS ORDERED: KCL 20 MEQ/100 mL IVPB 20 MEQ/100 ML BAG IV SCH (07:00)
--- NOTE | 2019-02-12 08:47 | P.PN ---
Subjective Date of Service: 02/12/19 Primary Care Provider: Unknown Chief Complaint: Respiratory failure patient on a ventilator Subjective: Other (Patient sedated and intubated. patient did have fever last night.) Physical Examination - Vital Signs Temperature: 99.5 F Blood Pressure: 135/85 Pulse: 104 Respirations: 17 Pulse Ox (%): 98 - Physical Exam General: Other (Patient sedated and intubated) Neck: Supple Respiratory: Clear to auscultation bilaterally, Normal air movement Cardiovascular: Normal pulses, Regular rate/rhythm Gastrointestinal: Normal bowel sounds, Soft and benign, Non-distended Neurological: Other (Patient sedated) - Studies Medications List Reviewed: Yes Assessment & Plan Discharge Plan: Home Plan to discharge in: 24 Hours Physician Review Additional Text: Impression: Altered mental status suspect metabolic encephalopathy related to drug overdose complicated with positive drug screen-amphetamines/THC and alcohol Acute renal injury with hypernatremia Acute respiratory failure requiring intubation for airway protection Fever suspect related to alcohol withdrawal Plan: Altered mental status suspect metabolic encephalopathy related to drug overdose complicated with positive drug screen-amphetamines/THC and alcohol: Patient remains sedated and intubated. Anticipate pulmonology to wean off ventilator today. Patient had fever last night. Blood cultures negative. Pro calcitonin negative. Sputum culture pending. Recheck chest x-ray unremarkable. Fever may be related to alcohol withdrawal. Will continue to monitor closely. Will discuss further with pulmonology. IV fluids adjusted. Will need to investigate for possible suicidal ideation once the patient is extubated. Continue with serial examinations. Acute renal injury with hypernatremia: Renal function improved. IV fluids adjusted. Continue to monitor and adjust appropriately. Acute respiratory failure requiring intubation for airway protection: Anticipate pulmonology to wean off ventilator. Monitor closely. Fever suspect related to alcohol withdrawal: Continue Ativan as needed. Blood cultures negative. Pro calcitonin negative. Sputum culture pending. Chest x- ray unremarkable. Recent urinalysis showed no evidence of UTI. Will continue to monitor closely. Time Spent Managing Pts Care (In Minutes): 55
--- NOTE | 2019-02-12 08:56 | RAD REPORT ---
EXAM DESCRIPTION: [facility] Single View02/12/2019 7:32 am CLINICAL HISTORY: Shortness of breath COMPARISON: February 11, 2019 FINDINGS: Endotracheal tube has its tip 7 centimeters above the amparo. A nasogastric tube is coiled within the gastric fundus. The lungs appear clear of acute infiltrate. The heart is normal size
[2019-02-12 08:57] LABS: Platelet Estimate ADEQ; Urine White Blood Cell Casts OK
[2019-02-12 08:58] LABS: Blood Morphology Comment NOT SEEN (NOT SEEN)
[2019-02-12] MEDS ORDERED: LORazepam 2 MG/ML VIAL IV ONE (08:58)
[2019-02-12] MEDS ORDERED: HALOPERIDOL LACT 5 MG/ML INJ IV ONE (08:59)
[2019-02-12] MEDS: FAMOTIDINE 20 MG/2 ML VIAL IV SCH ×2 (09:10→20:51)
[2019-02-12] MEDS: D5 0.9 NS 1,000 ML IV SCH ×3 (09:10→21:01)
[2019-02-12] MEDS: ENOXAPARIN 40 MG/0.4 ML SQ SCH (09:10)
[2019-02-12 09:24] LABS: Thyroid Stimulating Hormone 0.977 uIU/mL (0.360-3.740)
[2019-02-12 11:05] LABS: Urine Appearance CLEAR; Urine Bilirubin NEGATIVE (NEG); Urine Blood NEGATIVE (NEG); Urine Color YELLOW; Urine Glucose NEGATIVE (NEG); Urine Protein NEGATIVE (NEG)
[2019-02-12 11:14] LABS: Urine Microscopic Reflex NO UMIC
[2019-02-12] MEDS ORDERED: VANCOMYCIN 1 GM in NA CHLORIDE 0.9% 500 ML IVPB SCH (12:23)
--- NOTE | 2019-02-12 12:53 | P.PN ---
Subjective Date of Service: 02/12/19 Primary Care Provider: Unknown Chief Complaint: Respiratory failure patient on a ventilator Patient's condition is stable he is responsive on propofol drip running a high fever Review of Systems is unable to be obtained Physical Examination - Vital Signs Temperature: 99.5 F Blood Pressure: 145/87 Pulse: 118 Respirations: 16 Pulse Ox (%): 97 - Physical Exam Respiratory: Clear to auscultation bilaterally Cardiovascular: No edema, Regular rate/rhythm, Normal S1 S2 - Studies Medications List Reviewed: Yes Assessment & Plan - Problems (Diagnosis) (1) Respiratory failure Current Visit: Yes Status: Acute Plan: Currently on a ventilator hemodynamically stable minimal oxygen requirement patient's chest x-rays clear white count is mildly elevated all cultures are negative agree with IV antibiotics head CT negative Qualifiers: Chronicity: acute (2) Hypernatremia Current Visit: Yes Status: Resolved Plan: Most likely secondary to her dehydration change to D5 water Physician Review Additional Text: Impression: Altered mental status suspect metabolic encephalopathy related to drug overdose complicated with positive drug screen-amphetamines/THC and alcohol Acute renal injury with hypernatremia Acute respiratory failure requiring intubation for airway protection Fever suspect related to alcohol withdrawal Plan: Altered mental status suspect metabolic encephalopathy related to drug overdose complicated with positive drug screen-amphetamines/THC and alcohol: Patient remains sedated and intubated. Anticipate pulmonology to wean off ventilator today. Patient had fever last night. Blood cultures negative. Pro calcitonin negative. Sputum culture pending. Recheck chest x-ray unremarkable. Fever may be related to alcohol withdrawal. Will continue to monitor closely. Will discuss further with pulmonology. IV fluids adjusted. Will need to investigate for possible suicidal ideation once the patient is extubated. Continue with serial examinations. Acute renal injury with hypernatremia: Renal function improved. IV fluids adjusted. Continue to monitor and adjust appropriately. Acute respiratory failure requiring intubation for airway protection: Anticipate pulmonology to wean off ventilator. Monitor closely. Fever suspect related to alcohol withdrawal: Continue Ativan as needed. Blood cultures negative. Pro calcitonin negative. Sputum culture pending. Chest x- ray unremarkable. Recent urinalysis showed no evidence of UTI. Will continue to monitor closely.
[2019-02-12] MEDS: VANCOMYCIN 1.25 GM in NA CHLORIDE 0.9% 250 ML IVPB SCH (13:28)
[2019-02-12] MEDS: CEFTRIAXONE/SWI 1gm 1 GM/10 ML SYR IV SCH ×2 (13:29→20:51)
[2019-02-12] MEDS: FENTANYL CITR 100 MCG/2 ML IV PRN (15:10)
[2019-02-13] MEDS: VANCOMYCIN 1.25 GM in NA CHLORIDE 0.9% 250 ML IVPB SCH ×2 (00:45→13:43)
[2019-02-13] MEDS: FENTANYL CITR 100 MCG/2 ML IV PRN (03:10)
[2019-02-13] MEDS: PROPOFOL 1,000 MG/100 ML VIAL IV PRN (03:11)
[2019-02-13] MEDS: D5 0.9 NS 1,000 ML IV SCH (04:00)
[2019-02-13 05:40] LABS: ALT/SGPT 63 U/L (12-78); AST/SGOT 106 U/L (15-37); Albumin 3.2 g/dL (3.4-5.0); Alkaline Phosphatase 66 U/L (45-117); BUN Blood Urea Nitrogen 8 mg/dL (7-18); Bicarbonate 28 mmol/L (21-32); Bilirubin Total 0.9 mg/dL (0.2-1.0); Glucose Level 102 mg/dL (74-106); Magnesium 1.9 mg/dL (1.8-2.4); Potassium 3.8 mmol/L (3.5-5.1); Protein, Total 6.9 g/dL (6.4-8.2); Sodium Level 138 mmol/L (136-145)
[2019-02-13 06:02] LABS: Absolute Lymphocytes (CBC) 0.9 K/uL (0.7-4.9); Basophils % 0.4 % (0-1.3); Hematocrit 43.1 % (39.6-49.0); MPV 8.9 fL (7.6-11.3); RBC Red Blood Cell Count 4.76 M/uL (4.33-5.43)
[2019-02-13 06:09] LABS: Arterial Blood Carboxyhemoglob 1.2 % (0-1.5); Blood Gas Oxyhemoglobin 95.1 % (94-97); Blood O2 Saturation 96.9 % (92-98.5)
[2019-02-13] MEDS ORDERED: KCL 20 MEQ/100 mL IVPB 20 MEQ/100 ML BAG IV SCH (06:30)
--- NOTE | 2019-02-13 08:57 | P.PN ---
Subjective Date of Service: 02/13/19 Primary Care Provider: Unknown Chief Complaint: Respiratory failure patient on a ventilator Subjective: Other (Patient doing better. Patient still intubated. Less fever noted. Vital signs stable.) Physical Examination - Vital Signs Temperature: 98.4 F Blood Pressure: 128/77 Pulse: 97 Respirations: 16 Pulse Ox (%): 99 - Physical Exam General: Alert, Cooperative, Other (Patient intubated but follows commands) HEENT: Atraumatic Neck: Supple Respiratory: Clear to auscultation bilaterally, Normal air movement Cardiovascular: Normal pulses, Regular rate/rhythm Gastrointestinal: Normal bowel sounds, Soft and benign, Non-distended, No masses , No rebound, No guarding Neurological: Normal strength at 5/5 x4 extr, Normal tone - Studies Medications List Reviewed: Yes Assessment & Plan Discharge Plan: Home Plan to discharge in: 24 Hours Physician Review Additional Text: Impression: Altered mental status suspect metabolic encephalopathy related to drug overdose complicated with positive drug screen-amphetamines/THC and alcohol Acute renal injury with hypernatremia Acute respiratory failure requiring intubation for airway protection Fever suspect related to alcohol withdrawal Plan: Altered mental status suspect metabolic encephalopathy related to drug overdose complicated with positive drug screen-amphetamines/THC and alcohol: Patient remains intubated. Anticipate extubation today. Blood cultures negative. Urinalysis negative. Chest x-ray negative. Patient was placed on IV antibiotic therapy due to fever and elevated white count. Fever may be related to withdrawal. Continue IV fluids. Will reassess after extubation. Continue to monitor closely thereafter. Still no information concerning family situation or home situation. Will wait to discuss with patient after extubation. Acute renal injury with hypernatremia: Renal function improved. IV fluids adjusted. Sodium level stable at this time. Acute respiratory failure requiring intubation for airway protection: Anticipate extubation today. Will reassess thereafter. Fever suspect related to alcohol withdrawal: Continue Ativan as needed. Blood cultures, urinalysis, chest x-ray negative. Patient on IV antibiotic therapy due to fever. Will continue to monitor closely. Await final results of cultures. Will consider discontinuing IV antibiotic therapy. If unremarkable. Case discussed with pulmonology yesterday. Time Spent Managing Pts Care (In Minutes): 55
[2019-02-13] MEDS: FAMOTIDINE 20 MG/2 ML VIAL IV SCH (09:08)
[2019-02-13] MEDS: CEFTRIAXONE/SWI 1gm 1 GM/10 ML SYR IV SCH ×2 (09:08→20:27)
[2019-02-13] MEDS: ENOXAPARIN 40 MG/0.4 ML SQ SCH (09:09)
--- NOTE | 2019-02-13 12:10 | RAD REPORT ---
EXAM DESCRIPTION: RAD - Chest Single View - 02/13/2019 6:30 am CLINICAL HISTORY: ETT placement Chest pain. COMPARISON: Chest Single View dated 02/12/2019; Chest Single View dated 02/11/2019; Chest Single View dated 02/10/2019; CHEST SINGLE VIEW dated 03/05/2015 FINDINGS: Portable technique limits examination quality. ET tube tip is above the amparo. Enteric tube descends into the upper abdomen. The lungs are grossly clear. The heart is normal in size. No displaced fractures.
[2019-02-13] MEDS: FAMOTIDINE 20 MG TAB PO SCH (20:27)
[2019-02-14] MEDS: NICOTINE 21 MG/PAT TD SCH ×2 (00:06→09:00)
[2019-02-14] MEDS: VANCOMYCIN 1.25 GM in NA CHLORIDE 0.9% 250 ML IVPB SCH (01:30)
[2019-02-14 06:16] LABS: Absolute Lymphocytes (CBC) 1.1 K/uL (0.7-4.9); Basophils % 0.3 % (0-1.3); Hematocrit 41.4 % (39.6-49.0); Lymphocytes % 11.9 % (15.3-44.8); MPV 8.8 fL (7.6-11.3)
[2019-02-14 06:26] LABS: BUN Blood Urea Nitrogen 10 mg/dL (7-18); Bicarbonate 28 mmol/L (21-32); Glucose Level 103 mg/dL (74-106); Potassium 3.6 mmol/L (3.5-5.1); Sodium Level 140 mmol/L (136-145)
[2019-02-14] MEDS ORDERED: POTASSIUM 25 MEQ EFFERV TAB PO ONE (08:00)
[2019-02-14] MEDS ORDERED: THIAMINE HCL 100 MG TABLET PO SCH (09:00)
[2019-02-14] MEDS ORDERED: FOLIC ACID 1 MG TABLET PO SCH (09:00)
[2019-02-14] MEDS: ENOXAPARIN 40 MG/0.4 ML SQ SCH ×2 (09:00→09:01)
[2019-02-14] MEDS: FAMOTIDINE 20 MG TAB PO SCH (09:01)
[2019-02-14] MEDS: CEFTRIAXONE/SWI 1gm 1 GM/10 ML SYR IV SCH (09:02)
--- NOTE | 2019-02-14 09:03 | P.DS ---
Admission Date: 02/10/19 Discharge Date: 02/14/19 Primary Care Provider: Unknown Disposition: ROUTINE DISCHARGE Discharge Condition: GOOD Reason for Admission: Respiratory failure patient on a ventilator Consultations: Pulmonary-Dr. Pinto Procedures: CT head/spine: COMPARISON: No comparisons TECHNIQUE: Axial 5 mm thick images of the head were obtained. Axial 2 mm thick images of the cervical spine were obtained with sagittal and coronal reconstruction images generated and reviewed. All CT scans are performed using dose optimization technique as appropriate and may include automated exposure control or mA/KV adjustment according to patient size. FINDINGS: CT HEAD WITHOUT CONTRAST: No acute hemorrhage, hydrocephalus or extra-axial collection is identified.No areas of brain edema or midline shift. The paranasal sinuses and mastoids are clear.The calvarium is intact. CT CERVICAL SPINE WITHOUT CONTRAST: No fracture or subluxation.No prevertebral soft tissues swelling is identified. Enteric tube and ET tube are noted. IMPRESSION: No acute intracranial or cervical spine findings. CXR: COMPARISON: CHEST SINGLE VIEW dated 03/05/2015 FINDINGS: Portable technique limits examination quality. The lungs are grossly clear. The heart is normal in size. No displaced fractures. Tip of the ET tube is above the amparo. Enteric tube coils in the stomach. Medical Problem List: Altered mental status related to metabolic encephalopathy related to drug overdose complicated with positive drug screen-amphetamines/THC and alcohol Acute renal injury with hypernatremia secondary to dehydration, resolved Acute respiratory failure requiring intubation for airway protection, resolved Fever related to alcohol withdrawal Brief History of Present Illness: 28-year-old male presented to the emergency room after he was brought in by EMS and police. All information came from ER physician and EMS. Apparently police arrived to patient's car after they were called to investigate a person slumped over in a car. When EMS arrived patient was combative and agitated. Patient required Ativan. Patient was febrile with temperature of 102. Upon arrival to the ER patient continued to be combative and agitated. Valium was given. Ketamine also was required. Patient was intubated for airway protection and to the severe agitation. In the ER, patient was initially tachycardic with a rate between 150-180. CT head unremarkable. Chest x-ray unremarkable. Urine drug screen was positive for amphetamines and THC. Tylenol level within normal range. Alcohol level was elevated at 4.0. White count 11.7, hemoglobin 14. Platelet count of 292. Sodium 152. Potassium 4.4, BUN of 18, creatinine 1.63 with a GFR 51. Glucose 90. Pro calcitonin unremarkable. Lactic acid was elevated at 6.4. Patient was given IV fluids in the emergency room. Patient remains stable on ventilator. I was asked to admit the patient for further evaluation and treatment. When I saw the patient, patient was intubated and sedated. Dilated pupils noted. Family not present. Hospital Course: Patient presented to the hospital with altered mental status related to metabolic encephalopathy. He was apparently found by police in his car. Little information came from the police. Patient was evaluated in the emergency room. Patient appeared severely dehydrated. Patient required intubation for airway protection and severe agitation. Patient was positive for amphetamines and THC. Alcohol level was also elevated. Patient also had acute renal injury with hypernatremia likely from dehydration. During the course of his stay patient was given IV fluids and monitored closely. Patient also had a fever. This was likely related to drug overdose and alcohol withdrawal. The patient was eventually extubated. After extubation patient admitted amphetamine/alcohol/THC use. Amphetamine/THC/alcohol cessation addressed in detail. Patient understands the risks of continued use. Family was present during his stay after extubation. He did not wish to disclose any of his medical issues to his family. At discharge he is without any significant fever, chills, chest pain or shortness of breath. Infection has been ruled out. Blood cultures negative. Chest x-ray unremarkable. Lab within normal range. Patient tolerating diet. Pulmonology was consulted during the course of his stay. Patient cleared for discharge at this time. Patient does not require any medication at discharge. Will provide incentive spirometer. Recommend follow up with a PCP to establish care and follow up this hospitalization. Will also recommend amphetamine/THC/alcohol cessation in the future. Vital Signs/Physical Exam: Temp Pulse Resp BP Pulse Ox 98.1 F 97 H 21 H 120/63 6 L 02/14/19 04:00 02/14/19 05:00 02/14/19 05:00 02/14/19 06:00 02/14/19 05:00 General: Alert, In no apparent distress, Oriented x3, Cooperative HEENT: Atraumatic Neck: Supple Respiratory: Clear to auscultation bilaterally, Normal air movement Cardiovascular: Normal pulses, Regular rate/rhythm Gastrointestinal: Normal bowel sounds, Soft and benign, Non-distended, No tenderness, No masses, No rebound, No guarding Musculoskeletal: No erythema, No tenderness, No warmth Integumentary: No tenderness/swelling, No erythema, No warmth, No cyanosis Neurological: Normal speech, Normal strength at 5/5 x4 extr, Normal tone, Normal affect Laboratory Data at Discharge: WBC 9.3 K/uL (4.3-10.9) D 02/14/19 05:10 Hgb 13.7 g/dL (13.6-17.9) 02/14/19 05:10 Hct 41.4 % (39.6-49.0) 02/14/19 05:10 Plt Count 199 K/uL (152-406) D 02/14/19 05:10 PT 11.5 SECONDS (9.5-12.5) 02/10/19 12:48 INR 0.97 02/10/19 12:48 APTT 20.3 SECONDS (24.3-36.9) L 02/10/19 12:48 Sodium 140 mmol/L (136-145) 02/14/19 05:10 Potassium 3.6 mmol/L (3.5-5.1) 02/14/19 05:10 BUN 10 mg/dL (7-18) 02/14/19 05:10 Creatinine 0.71 mg/dL (0.55-1.3) 02/14/19 05:10 Glucose 103 mg/dL (74-106) 02/14/19 05:10 Phosphorus 3.0 mg/dL (2.5-4.9) 02/14/19 05:10 Magnesium 2.0 mg/dL (1.8-2.4) 02/14/19 05:10 Total Bilirubin 0.9 mg/dL (0.2-1.0) 02/13/19 04:50 AST 106 U/L (15-37) H 02/13/19 04:50 ALT 63 U/L (12-78) 02/13/19 04:50 Alkaline Phosphatase 66 U/L (45-117) 02/13/19 04:50 Troponin I 0.03 ng/mL (0.0-0.045) 02/10/19 12:48 Home Medications: NK [No Home Meds] 02/13/19 Patient Discharge Instructions: 1. Recommend to establish care with a PCP to follow up this hospitalization. 2. Patient presented to the hospital with altered mental status related to metabolic encephalopathy. He was apparently found by police in his car. Little information came from the police. Patient was evaluated in the emergency room. Patient appeared severely dehydrated. Patient required intubation for airway protection and severe agitation. Patient was positive for amphetamines and THC. Alcohol level was also elevated. Patient also had acute renal injury with hypernatremia likely from dehydration. During the course of his stay patient was given IV fluids and monitored closely. Patient also had a fever. This was likely related to drug overdose and alcohol withdrawal. The patient was eventually extubated. After extubation patient admitted amphetamine/alcohol/THC use. Amphetamine/THC/ alcohol cessation addressed in detail. Patient understands the risks of continued use. Family was present during his stay after extubation. He did not wish to disclose any of his medical issues to his family. At discharge he is without any significant fever, chills, chest pain or shortness of breath. Infection has been ruled out. Blood cultures negative. Chest x-ray unremarkable. Lab within normal range. Patient tolerating diet. Pulmonology was consulted during the course of his stay. Patient cleared for discharge at this time. Patient does not require any medication at discharge. Will provide incentive spirometer. Recommend follow up with a PCP to establish care and follow up this hospitalization. Will also recommend amphetamine/THC/alcohol cessation in the future. Diet: Regular Activity: Ad adonis Time spent managing pt's care (in minutes): 55
--- NOTE | 2019-02-15 07:49 | ECHO ---
HEIGHT: 5 ft 9 in WEIGHT: 155 lb 12.8 oz DATE OF STUDY: 02/12/[address]: Michael Maddox DO 2-DIMENSIONAL: YES M.MODE: YES DOPPLER: YES COLOR FLOW: YES TDS: YES PORTABLE: NO DEFINITY: NO BUBBLE STUDY: NO DIAGNOSIS: RULE OUT ENDOCARDITIS CARDIAC HISTORY: CATHERIZATION: NO SURGERY: NO PROSTHETIC VALVE: NO PACEMAKER: NO MEASUREMENTS (cm) DIASTOLIC (NORMALS) SYSTOLIC (NORMALS) IVSd 0.8 (0.6-1.2) LA Diam 2.9 (1.9-4.0) LVEF 51% LVIDd 3.7 (3.5-5.7) LVIDs 2.8 (2.0-3.5) %FS 25% LVPWd 1.0 (0.6-1.2) Ao Diam 2.5 (2.0-3.7) 2 DIMENSIONAL ASSESSMENT: RIGHT ATRIUM: NORMAL LEFT ATRIUM: NORMAL RIGHT VENTRICLE: NORMAL LEFT VENTRICLE: NORMAL TRICUSPID VALVE: NORMAL MITRAL VALVE: NORMAL PULMONIC VALVE: NORMAL AORTIC VALVE: NORMAL PERICARDIAL EFFUSION: NONE AORTIC ROOT: NORMAL LEFT VENTRICULAR WALL MOTION: NORMAL DOPPLER/COLOR FLOW: MILD TRICUSPID REGURGITATION. COMMENTS: MILD TRICUSPID REGURGITATION. NORMAL LEFT VENTRICULAR EJECTION FRACTION AND SIZE. PLEURAL EFFUSION NOTED. TECHNOLOGIST: Sanjeev HOOD
== END 2019-02-14 10:20 | disposition home or self-care (01) | DRG 917 ==
LOC: ER 12:12 → ERHOLD 14:44 → 3RD-ICU 16:50
PROVIDERS: ADMIT Family Medicine; ATTEND Family Medicine
PROC: 0BH17EZ Insertion of Endotracheal Airway into Trachea, Via Natural or Artificial Opening (ICD-10-PCS; principal; 2019-02-10)
PROC: 5A1945Z Respiratory Ventilation, 24-96 Consecutive Hours (ICD-10-PCS; 2019-02-10)
DX: T43.621A Poisoning by amphetamines, accidental (unintentional), initial encounter (principal); G92 Toxic encephalopathy; J96.00 Acute respiratory failure, unspecified whether with hypoxia or hypercapnia; E87.0 Hyperosmolality and hypernatremia; N17.9 Acute kidney failure, unspecified; T40.7X1A Poisoning by cannabis (derivatives), accidental (unintentional), initial encounter; T51.0X1A Toxic effect of ethanol, accidental (unintentional), initial encounter; Y92.810 Car as the place of occurrence of the external cause; E86.0 Dehydration; R50.9 Fever, unspecified
CPT/HCPCS: 31500; 36415; 51702; 70450; 71045; 72125; 80048; 80053; 80076; 80202; 80307; 80320; 80329; 81003; 82550; 82553; 82805; 82962; 83605; 83735; 84100; 84145; 84439; 84443; 84484; 85025; 85610; 85730; 87040; 93005; 93306; 94002; 94003; 99291; 99292; J0696; J1630; J1650; J2250; J2704; J3010; J3360; J3475; J7030